=== PATIENT | male | born 1935 | race Caucasian/White ===

== ENCOUNTER → 2017-03-25 | Outpatient (CLI) | payer MEDICARE, BC ==
[~2017-03-25] MED LIST: ASPIR-LOW81 MG PO; ASPIRIN 81M81 MG/TA2 PO; COZAAR 50MG50 MG/TAB PO; DIOVAN; GAVISCON; HCTZ; PROTONIX 40MG T40 MG PO; PROTONIX I40 MG/VIAL; prevastatin
[2017-03-25 16:27] LABS: BASO # 0.1 (0.0-0.2); BASO % 1.4 % (0.0-2.0); EOS # 0.7 (0.0-0.7); EOS % 8.9 % (0-4.0); GRAN # 4.8 (1.4-6.5); GRAN % 58.5 % (42.2-75.2); HEMATOCRIT 46.4 % (42.0-52.0); HEMOGLOBIN 15.3 g/dl (13.5-18.0); LYMPH # 1.6 (1.2-3.4); LYMPH % 19.4 % (20.0-51.0); MEAN CELL VOLUME 92 fl (80.0-100.0); MEAN CORPUSCULAR HEMOGLOBIN 30 pg (27.0-31.0); MEAN CORPUSCULAR HGB CONC 33 g/dl (33.0-37.0); MEAN PLATELET VOLUME 8.9 fl (7.4-10.4); MONO # 0.9 (0.1-0.6); MONO % 11.6 % (1.7-9.3); PLATELET COUNT 161 K/mm3 (130-400); RED BLOOD COUNT 5.07 M/mm3 (4.20-5.60); REDCELL DISTRIBUTION WIDTH-CV 13.2 % (11.5-14.5); WHITE BLOOD COUNT 8.1 K/mm3 (4.8-10.8)
== END ==
LOC: COL.LAB 16:04
PROVIDERS: Internal Medicine Pulmonary Disease
DX: R05 Cough (principal); Z98.890 Other specified postprocedural states

== ENCOUNTER 2018-02-12 11:58 | Day surgery (SDC) | payer MEDICARE, BC ==
[2009-03-20 13:43] VITALS: BP 106/55
[~2018-02-12] VITALS: Ht 177.8 cm; Wt 111.8 kg
[2018-02-12] VITALS (8 sets, daily range): BP systolic 123–141; BP diastolic 59–75; PULSE 62–79; TEMP 98.3–98.6
[2018-02-12 12:20] LABS: BASO # 0.1 (0.0-0.2); BASO % 0.8 % (0.0-2.0); EOS # 0.3 (0.0-0.7); GRAN # 5.8 (1.4-6.5); GRAN % 69.4 % (42.2-75.2); HEMATOCRIT 45.4 % (42.0-52.0); HEMOGLOBIN 15.1 g/dl (13.5-18.0); LYMPH # 1.3 (1.2-3.4); LYMPH % 15.7 % (20.0-51.0); MEAN CELL VOLUME 93 fl (80.0-100.0); MEAN CORPUSCULAR HEMOGLOBIN 31 pg (27.0-31.0); MEAN CORPUSCULAR HGB CONC 33 g/dl (33.0-37.0); MEAN PLATELET VOLUME 8.6 fl (7.4-10.4); MONO # 0.9 (0.1-0.6); MONO % 10.9 % (1.7-9.3); PLATELET COUNT 153 K/mm3 (130-400); REDCELL DISTRIBUTION WIDTH-CV 13.6 % (11.5-14.5)
[2018-02-12] MEDS ORDERED: ADVIL LIQUI-GE200 MG PO (12:40)
[2018-02-12] MEDS ORDERED: XYZAL5 MG PO (12:40)
[2018-02-12] MEDS ORDERED: ZOVIRAX400 MG PO (12:41)
== END 2018-02-12 16:50 | disposition home or self-care (01) ==
LOC: SDCO 11:58
PROVIDERS: Urology
DX: N21.1 Calculus in urethra (principal); N30.41 Irradiation cystitis with hematuria; Z85.46 Personal history of malignant neoplasm of prostate; Z92.3 Personal history of irradiation; Z87.442 Personal history of urinary calculi; K21.9 Gastro-esophageal reflux disease without esophagitis; Z79.82 Long term (current) use of aspirin; Z80.9 Family history of malignant neoplasm, unspecified; I10 Essential (primary) hypertension; G47.33 Obstructive sleep apnea (adult) (pediatric); I05.9 Rheumatic mitral valve disease, unspecified; Z98.890 Other specified postprocedural states
CPT/HCPCS: J0690; J1100; J2405; J2704; J3010; J7120

== ENCOUNTER → 2018-12-02 | Outpatient (CLI) | payer MEDICARE, BC ==
[~2018-12-02] MED LIST changes: +ADVIL LIQUI-GE200 MG PO; +XYZAL5 MG PO; +ZOVIRAX400 MG PO
== END ==
LOC: COL.RAD 11-25 13:30
DX: J01.41 Acute recurrent pansinusitis (principal); K22.719 Barrett's esophagus with dysplasia, unspecified

== ENCOUNTER 2019-01-09 09:53 | Day surgery (SDC) | payer MEDICARE, BC ==
[2009-03-20 13:43] VITALS: BP 106/55
[~2019-01-09] VITALS: Ht 177.8 cm; Wt 108.0 kg
[~2019-01-09 09:53] MED LIST changes: -ADVIL LIQUI-GE200 MG PO; +MOTRIN 200200 MG/TAB PO
[2019-01-09] MEDS ORDERED: BREO IH (10:12)
[2019-01-09] MEDS ORDERED: VENTOLIN0.09 MG IH (10:13)
[2019-01-09] MEDS ORDERED: PRAVACHOL 40MG40 MG PO (10:13)
[2019-01-09 10:49] VITALS: BP 132/65; PULSE 57; TEMP 97.6
[2019-01-09 12:06] VITALS: BP 124/66; PULSE 57; TEMP 98
--- NOTE | 2019-01-09 12:06 | NUR ---
Pt returns from endo procedure. Pt ambulates from cart to recliner with RN assist. Monitors on and alarms set. Call light within reach. Report received from JOSE DAVID Dalton. Pt requests muffins and water. Pt reports no pain or nausea. present in room. Pt alert and answering all questions appropriately.
[2019-01-09 12:15] VITALS: BP 127/69; PULSE 54
[2019-01-09 12:30] VITALS: BP 131/74; PULSE 57
--- NOTE | 2019-01-09 12:30 | NUR ---
Pt taking food and drink well. No complications voiced by patient.
[2019-01-09 12:45] VITALS: BP 125/84; PULSE 49
--- NOTE | 2019-01-09 12:45 | NUR ---
Patient has no complaints. Waiting on Dr. Low to visit with patient.
--- NOTE | 2019-01-09 12:55 | NUR ---
Dr. Low visits with patient and .
[2019-01-09 13:00] VITALS: BP 118/71; PULSE 64
--- NOTE | 2019-01-09 13:10 | NUR ---
Discharge instructions given to patient and . All questions answered to their satisfaction. Handed to them are discharge instructions, diagnosis information, a thank you card, and a discharge med sheet.
--- NOTE | 2019-01-09 13:20 | NUR ---
Pt ambulates to bathroom without complications.
--- NOTE | 2019-01-09 13:25 | NUR ---
Pt ambulates out of hospital with this RN assist and accompanying to private vehicle driven by .
== END 2019-01-09 13:25 | disposition home or self-care (01) ==
LOC: SDCO 09:53
DX: K22.70 Barrett's esophagus without dysplasia (principal); K21.9 Gastro-esophageal reflux disease without esophagitis; I10 Essential (primary) hypertension; Z85.46 Personal history of malignant neoplasm of prostate; Z90.79 Acquired absence of other genital organ(s); Z79.82 Long term (current) use of aspirin; I05.9 Rheumatic mitral valve disease, unspecified; E78.00 Pure hypercholesterolemia, unspecified; G47.33 Obstructive sleep apnea (adult) (pediatric); Z79.899 Other long term (current) drug therapy; Z87.442 Personal history of urinary calculi; Q62.5 Duplication of ureter; Z79.01 Long term (current) use of anticoagulants; Z95.2 Presence of prosthetic heart valve; J32.9 Chronic sinusitis, unspecified
CPT/HCPCS: J2704; J7030

== ENCOUNTER 2020-08-06 16:25 | Emergency (ER) | payer MEDICARE, BC ==
[2009-03-20 13:43] VITALS: BP 106/55
[~2020-08-06 16:25] MED LIST changes: +BREO IH; +PRAVACHOL 40MG40 MG PO; +VENTOLIN0.09 MG IH
[2020-08-06 16:33] VITALS: TEMP 98.4
[2020-08-06] MEDS ORDERED: MACROBID 1100 MG/CAP PO ×3 (17:36→17:54)
[2020-08-06 19:03] VITALS: BP 152/89; PULSE 91
== END 2020-08-06 19:04 | disposition home or self-care (01) ==
LOC: COL.ER 16:25
DX: R31.9 Hematuria, unspecified (principal); R33.9 Retention of urine, unspecified; Z85.46 Personal history of malignant neoplasm of prostate; Z90.79 Acquired absence of other genital organ(s); Z79.82 Long term (current) use of aspirin

== ENCOUNTER 2020-08-18 13:02 | Day surgery (SDC) | payer MEDICARE, BC ==
[2009-03-20 13:43] VITALS: BP 106/55
[2020-08-18] VITALS (10 sets, daily range): BP systolic 119–151; BP diastolic 58–90; PULSE 62–98; TEMP 98.1–98.6
[~2020-08-18] VITALS: Ht 177.8 cm; Wt 101.6 kg
[~2020-08-18 13:02] MED LIST changes: +MACROBID 1100 MG/CAP PO
--- NOTE | 2020-08-18 18:31 | NUR ---
PT TO ROOM 322 PER CART WITH REPORT FROM JOSE MAIN PACU @3050. PT IS DROWSEY AROUSES TO VERBAL. VSS, CBI WITH 6000 CREDIT AND 0 IN BARGER. BARGER [address] TO DD WITH CLEAR FLUID IN BARGER BAG. PT DENIES PAIN. SCDS PLACED BILATERALLY.IV TO GRAVITY AT THIS TIME.
--- NOTE | 2020-08-18 22:53 | NUR ---
Pt currently sleeping in bed. Pt urine is pale yellow and very clear. Pt has his call light withn reach and his bed is in lowest position.
[2020-08-19 03:53] VITALS: BP 107/71; PULSE 68; TEMP 97.7
--- NOTE | 2020-08-19 06:21 | NUR ---
Pt resting in bed and has his call light within reach. Pt urine is yellow and clear. Pt has no complaints of pain at this time .
--- NOTE | 2020-08-19 07:18 | NUR ---
Reported off to JOSE DAVID Barcenas. Pt is sitting up in bed and eating breakfast at this time. Pt has his call light within reach and his bed is in lowest position. Urine is still clear and yellow.
--- NOTE | 2020-08-19 12:06 | NUR ---
Emts met with patient to discuss discharge planning. Patient lives in [place] with his , Courtney (ph#[phone]). Patient sees Dr. Landa for primary care and obtains medications from [facility] in [place] with no difficulties. Patient uses a CPAP and no other DME. Patient reports independence with ADLS and plans to return home upon discharge. Patient does not have Advance Directives in EMR however he reports his is his DPOA-HC. SW will continue to follow as needed.
[2020-08-19 12:41] VITALS: BP 115/51; PULSE 84; TEMP 98.1
--- NOTE | 2020-08-19 16:10 | NUR ---
Patient resting in bed with urinal at this time. Patient is alert and oriented. Patient reports that he is incontinent of urine and that he has a constant stream of urine. Urine is clear and pale yellow. Patient called for excelsior picker but would like to wait on her arrival for discharge teaching. INT removed, catheter intact, hemostasis achieved. Patient denies further needs at this time and will call when his arrives.
--- NOTE | 2020-08-19 18:15 | NUR ---
Discharge teaching completed. Patient verbalized understanding of discharge instructions, discharge meds, and discharge follow up. Patient was awaiting dinner prior to discharge but decided to leave rather than wait to eat. Patient escorted to visitor entrance where he entered a private vehicle.
== END 2020-08-19 18:15 | disposition home or self-care (01) ==
LOC: SDCO 13:02 → SURG 18:10 → SDCO 08-19 18:15
DX: R31.9 Hematuria, unspecified (principal); N30.40 Irradiation cystitis without hematuria; Z90.49 Acquired absence of other specified parts of digestive tract; K21.9 Gastro-esophageal reflux disease without esophagitis; Z99.2 Dependence on renal dialysis; Z79.82 Long term (current) use of aspirin; I10 Essential (primary) hypertension; E78.5 Hyperlipidemia, unspecified; G47.33 Obstructive sleep apnea (adult) (pediatric); M19.90 Unspecified osteoarthritis, unspecified site; Z85.46 Personal history of malignant neoplasm of prostate
CPT/HCPCS: OP; J0690; J1100; J2405; J2704; J3010; J7030

== ENCOUNTER 2020-08-31 11:08 | Inpatient (IN) | payer MEDICARE, BC ==
[~2020-08-31] VITALS: Ht 177.8 cm; Wt 100.6 kg
[~2020-08-31 11:08] MED LIST changes: +OMNICEF 300MG300 MG PO
[2020-08-31 12:15] LABS: COLLECTION METHOD IN
[2020-08-31 12:34] LABS: PH 6 (5-8); SQUAMOUS EPITHELIAL None Seen /hpf; URINE APPEARANCE Cloudy; URINE BACTERIA Moderate /hpf; URINE BILIRUBIN Negative (NEGATIVE); URINE BLOOD 2+ (NEGATIVE); URINE COLOR Red; URINE GLUCOSE 1+ (NEGATIVE); URINE KETONE Negative (NEGATIVE); URINE LEUKOCYTE ESTERASE Trace (NEGATIVE); URINE NITRATE Negative (NEGATIVE); URINE PROTEIN(semi-quant) 2+ (NEGATIVE); URINE RBC >50 /hpf; URINE UROBILINOGEN Negative (NEGATIVE)
[2020-08-31 13:19] LABS: BASO % 0.3 % (0.0-2.0); EOS # 0.1 (0.0-0.7); EOS % 0.8 % (0-4.0); GRAN # 5.2 (1.4-6.5); GRAN % 73.1 % (42.2-75.2); HEMOGLOBIN 11.9 g/dl (13.5-18.0); LYMPH # 0.9 (1.2-3.4); LYMPH % 12.7 % (20.0-51.0); MEAN CELL VOLUME 90 fl (80.0-100.0); MEAN CORPUSCULAR HEMOGLOBIN 30 pg (27.0-31.0); MEAN CORPUSCULAR HGB CONC 33 g/dl (33.0-37.0); MEAN PLATELET VOLUME 8.6 fl (7.4-10.4); MONO # 0.9 (0.1-0.6); PLATELET COUNT 149 K/mm3 (130-400); RED BLOOD COUNT 4.01 M/mm3 (4.20-5.60); REDCELL DISTRIBUTION WIDTH-CV 13.7 % (11.5-14.5)
[2020-08-31 13:28] LABS: INR 1.3 (0.8-3.0); PROTHROMBIN TIME 14.6 SECONDS (9.7-12.8)
[2020-08-31 13:33] LABS: CALCIUM 8.3 mg/dL (8.4-10.2); CREATININE, serum 1.05 (0.66-1.25); POTASSIUM 3.7 mmol/L (3.4-5.0)
[2020-08-31] MEDS ORDERED: PHARMASSURE ZIN50 MG PO (17:06)
[2020-08-31] MEDS ORDERED: VTAMINC250TA PO (17:07)
[2020-08-31] MEDS ORDERED: VITAMIN D31000 IU PO (17:07)
[2020-08-31] MEDS ORDERED: KLOR-CON 1010 MEQ PO (17:08)
[2020-08-31 17:16] VITALS: BP 138/72; PULSE 88
--- NOTE | 2020-08-31 18:30 | NUR ---
Patient arrived to floor at 1630. Mannually irrigated chandra catheter. Removed several large clots. CBI flowing slowly. Urine is light pink with few clots. Oriented patient to room. Explained how COVID isolation works. Patient stated his pain is better since getting the clots out. He was asking about visitors, explained he can not have any visitors. Denies nausea and pain otherwise. He described that he was having some sinus drainage and some upper respiratory symptoms. He said he called his PCP today for antibiotics for sinus infection. Explained that could be symptoms from the COVID. He said he did not start the antibiotics or pick them up from the pharmacy. He stated his tested postive Saturday for COVID. Dr Orlando stopped in to see patient and stated he could eat. Did not have additional orders at this time. No other changes at this time. Call light within reach.
[2020-08-31 19:17] LABS: ARTERIAL BLD GAS O2 SATURATION 96.3 % (92-100); ARTERIAL BLD GAS TCO2 CT 22.9; ARTERIAL BLOOD GAS BASE EXCESS -1.5 (-2-2); ARTERIAL BLOOD GAS HCO3 21.9 meq/L (22-26); ARTERIAL BLOOD GAS PCO2 32.7 mmHg (35-45); ARTERIAL BLOOD GAS PO2 81.2 mmHg (80-100); ARTERIAL BLOOD GAS pH 7.44 (7.35-7.45)
[2020-08-31] MEDS ORDERED: VITAMIND3 5000 PO (19:55)
[2020-08-31] MEDS ORDERED: GARLIC100 MG PO (19:56)
[2020-08-31] MEDS ORDERED: POTASSIUM GLUC595 M1 PO (19:57)
--- NOTE | 2020-08-31 22:00 | NUR ---
Shift assessment complete. Howell in place with CBI. Urine output peach colored and cleared with few small clots present. IV fluids running at 50 ml/hr. Reports discomfort to left shoulder. Up to restroom SBA, passed BM. Heart RRR, A&Ox4. Expiratory wheezes noted on auscultation. Dry cough present. Reports SOA and heavier breathing with exertion. Currently on room air. Call light in reach.
[2020-09-01] VITALS (8 sets, daily range): BP systolic 120–148; BP diastolic 70–84; PULSE 72–86; TEMP 97.6–99.1
[2020-09-01 02:31] LABS: C-REACTIVE PROTEIN 4.9 mg/dL (0.0-0.9); MAGNESIUM 1.9 mg/dL (1.6-2.3)
[2020-09-01 02:41] LABS: TROPONIN-I < 0.012 ng/mL (0.000-0.035)
--- NOTE | 2020-09-01 05:58 | NUR ---
CBI in place throughout night. Output peach colored with small clots for much of night. At this time, output pale yellow with minimal blood clots seen. 1250 mls urine output this shift. Remains on room air. O2 sats slowly decreasing overnight from high 90s to most recent sat at 92-93%. Reports increasing SOA with exertion and when lying flat. Nasal cannula at bedside. Will continue to monitor.
--- NOTE | 2020-09-01 09:25 | NUR ---
Assessment complete. Patient sitting up in bed at this time for breakfast. No complaints of pain or discomfort. CBI continues to run, urine is now pale yellow. Howell is patent draining well. IV site is CD&I, IVF continues to infuse, site is CD&I. Patient is very consious of his vital signs and health status but I assured him that he is stable and the his vitals are good. No other needs were expressed at this time. Call light is in reach.
[2020-09-01 12:40] LABS: HEMATOCRIT 37.3 % (42.0-52.0)
--- NOTE | 2020-09-01 14:38 | NUR ---
Patient called electronic parts salesperson light at this time and requested to see his nurse. I went into the room and patient was sitting on the toilet in the restroom stating "I am pooping straight water and there is blood coming out of my penis". CBI fluids had run out, a new 3000 ml bag was hung. Blood was pink/red and a few clots passed but urine went back to very light yellow right after that. Patient did report pain in his penis when fluids began irrigating again and went to the toilet where I suspect he had a bladder spasm because the fluid was clear with absolutely no stool. PAtient was not able to tell me where the fluid was coming from. Patient returned to bed, free of pain and is now comfortable. No other needs. Will continue to monitor.
--- NOTE | 2020-09-01 15:34 | NUR ---
Casino Floor Person contacted patient's , Courntey (ph#[phone]) to complete intake as patient is COVID positive. Per progress notes, Courtney is at home with COVID as is having high fevers. Courtney advised her temp this morning is 99.5 and she is doing okay at home. Courtney states she has enough food and her daughter, Magdalena (ph#[phone]) is able to come check on her. Courtney states her grandson was also there last night to help feed their animals. Patient and Courtney live in [place] and patient sees Dr. Landa for primary care. Patient obtains medications from [facility] in [place]. Per Courtney, patient does not use any DME and is independent with ADLS. Courtney states she would like patient to return home at discharge. BRIAN discussed home health with Courtney who states they may consider it but that she doesn't feel it's needed at this time. BRIAN contacted patient's daughter, Magdalena and left a message. BRIAN will continue to follow.
--- NOTE | 2020-09-01 18:22 | NUR ---
Patient had a good rest of the day with no issues. Urine is now clear and light yellow. PAtient reports dicomfort at chandra site but no other complaints of pain. CBI continues to run. No other needs. Call light is in reach.
--- NOTE | 2020-09-01 20:01 | NUR ---
Resting in bed. Assessment complete. Lungs clear. Heart sounds normal. Bowels active x4. Pulses present throughout. Bilateral lower ext edema +1. IV left hand infusing without complications. CBI pale yellow urine. CBI replaced. Denies pain. Denies needs at this time. Call light in reach.
[2020-09-02] VITALS (7 sets, daily range): BP systolic 116–144; BP diastolic 64–80; PULSE 66–80; TEMP 96–98.4
--- NOTE | 2020-09-02 07:15 | NUR ---
Report received from JOSE DAVID Wheeler. Pt in bed resting, CBI going at slow rate, assisted Summer with CBI intervention. Resting in bed without needs, will continue jason onitor.
[2020-09-02 07:28] LABS: BASO % 0.1 % (0.0-2.0); GRAN # 8.2 (1.4-6.5); GRAN % 81.3 % (42.2-75.2); HEMOGLOBIN 11.3 g/dl (13.5-18.0); LYMPH # 0.8 (1.2-3.4); LYMPH % 8.3 % (20.0-51.0); MEAN CELL VOLUME 91 fl (80.0-100.0); MEAN CORPUSCULAR HEMOGLOBIN 30 pg (27.0-31.0); MEAN CORPUSCULAR HGB CONC 33 g/dl (33.0-37.0); MEAN PLATELET VOLUME 9.1 fl (7.4-10.4); MONO % 9.9 % (1.7-9.3); PLATELET COUNT 156 K/mm3 (130-400); RED BLOOD COUNT 3.81 M/mm3 (4.20-5.60); REDCELL DISTRIBUTION WIDTH-CV 13.6 % (11.5-14.5)
[2020-09-02 07:29] LABS: HEMATOCRIT 34.5 % (42.0-52.0)
--- NOTE | 2020-09-02 07:57 | NUR ---
The patient had an uneventful night. Pt is on CBI, and rate was set by Dr. Walsh earlier in the evening. The patient did not have any complaints, just some pain during a bowel movement in the middle of the night, other than that, there are no other concerns. Report given to JOSE DAVID Chavez who will continue the care of this patient.
[2020-09-02 08:03] LABS: ALBUMIN 3.3 gm/dL (3.5-5.0); BILIRUBIN,TOTAL 0.6 mg/dL (0.0-1.0); CALCIUM 8.4 mg/dL (8.4-10.2); CREATININE, serum 0.89 (0.66-1.25); TOTAL PROTEIN 6.3 gm/dL (6.4-8.2)
--- NOTE | 2020-09-02 10:22 | NUR ---
Assessment charted. PT doing well, urine is pale yellow, clamped catheter at 0830. Denies pain, up ad wes to bathroom, no oxygen requirements. Anticipating discharge today but per Rodrigo PADILLA with Urology willing to stay until urology feels is able to discharge. Afib, rate controlled. VSS. IVF to LH. Will continue to monitor.
--- NOTE | 2020-09-02 17:07 | NUR ---
Crisis Specialist spoke with patient's daughter, Magdalena to review discharge plan. Magdalena advised she is in agreement with patient returning home. Magdalena advised she and her son have been checking in on patient's , Courtney. SW will continue to follow.
--- NOTE | 2020-09-02 18:05 | NUR ---
Pt has done very well today since getting catheter removed this morning. Staets he feels so much better, and is anticipating discharge tomorrow. Carly called and he wants to see pt in office early next week and cardiovert at end of week. Pt denies pain, resting in bed, up ad wes, will give bedside shift report to nightshift nurse who will resume care.
--- NOTE | 2020-09-02 20:00 | NUR ---
Assessment complete. Patient has no complaints of nausea or pain. He is afebrile and tolerating breathing on RA well. No edema is present. Patient expresses concern of wanting to go home tomorrow. Urinal at bedside is emptied into cup 3, 825 ml of clear, light yellow urine. Patient states his bladder spasms have stopped. No new concerns, will continue to monitor.
[2020-09-03 05:27] VITALS: BP 108/62; PULSE 56; TEMP 96.6
--- NOTE | 2020-09-03 07:00 | NUR ---
Report received form JOSE DAVID Lucas. pT in bed resting, denies needs, will continue to monitor.
[2020-09-03 07:04] LABS: CALCIUM 8.9 mg/dL (8.4-10.2); CREATININE, serum 0.95 (0.66-1.25); POTASSIUM 3.8 mmol/L (3.4-5.0)
[2020-09-03 07:30] LABS: TSH w REFLEX 0.632 uIU/mL (0.465-4.680)
[2020-09-03 09:12] VITALS: BP 138/80; PULSE 66; TEMP 96
--- NOTE | 2020-09-03 10:22 | NUR ---
Assessment charted. PT doing well, resting in bed, denies Dr. Tonny mitchell in this am and will discharge patient home, will get him out shortly
[2020-09-03] MEDS ORDERED: ELIQUIS 2.5 PO (10:28)
[2020-09-03] MEDS ORDERED: CEFTIN500 MG PO (12:59)
[2020-09-03] MEDS ORDERED: DECADRON6 MG PO (13:12)
--- NOTE | 2020-09-03 14:00 | NUR ---
Discharge teaching completed at this time. INT dc'd, tip intact. Pt received dishcarge packet, reviewed all information, pt verbalized understanding. Called 3 scripts int to [facility] per Dr. Martinez and Dr. Carroll. PT left with all belongings. Escorted out by myself and another nruse to maintain clean precautions. PT able to drive self home, OK per Dr. Lancaster. Criteria met.
== END 2020-09-03 14:15 | disposition home or self-care (01) | DRG 698 ==
LOC: COL.ER 11:08 → MEDICAL 12:33
PROVIDERS: Emergency Medicine; Hospitalist; Nurse Practitioner Family; Physician Assistant; ADMIT Urology
DX: N30.41 Irradiation cystitis with hematuria (principal); U07.1 COVID-19; D62 Acute posthemorrhagic anemia; I48.91 Unspecified atrial fibrillation; I10 Essential (primary) hypertension; K21.9 Gastro-esophageal reflux disease without esophagitis; K22.70 Barrett's esophagus without dysplasia; D64.9 Anemia, unspecified; R19.7 Diarrhea, unspecified; E87.6 Hypokalemia; Z95.1 Presence of aortocoronary bypass graft; Z85.46 Personal history of malignant neoplasm of prostate
CPT/HCPCS: OP; 99223; 99231-AI; 99232-AI; 99233-AI; G0378; J0696; J1170; J2270; J7030; J8540

== ENCOUNTER 2020-10-10 12:24 | Day surgery (SDC) | payer MEDICARE, BC ==
[2009-03-20 13:43] VITALS: BP 106/55
[~2020-10-10] VITALS: Ht 177.8 cm; Wt 100.4 kg
[~2020-10-10 12:24] MED LIST changes: +CEFTIN500 MG PO; +DECADRON6 MG PO; +ELIQUIS 2.5 PO; +GARLIC100 MG PO; +KLOR-CON 1010 MEQ PO; +PHARMASSURE ZIN50 MG PO; +POTASSIUM GLUC595 M1 PO; +VITAMIN D31000 IU PO; +VITAMIND3 5000 PO; +VTAMINC250TA PO
[2020-10-10] MEDS ORDERED: OMNICEF 300MG300 MG PO (12:48)
[2020-10-10] MEDS ORDERED: MOVE FREE JOIN1 EACH PO (12:51)
[2020-10-10] MEDS ORDERED: THE MEDICINE S200 M2 PO (12:52)
[2020-10-10 13:17] VITALS: BP 117/76; PULSE 91; TEMP 98.2
[2020-10-10 13:17] LABS: INR 1.4 (0.8-3.0); PROTHROMBIN TIME 15.2 SECONDS (9.7-12.8)
[2020-10-10 13:53] LABS: THYROID STIMULATING HORMONE 0.407 uIU/mL (0.465-4.680)
[2020-10-10 15:00] VITALS: BP 120/84; PULSE 72
[2020-10-10 15:15] VITALS: BP 128/81; PULSE 70
[2020-10-10 15:30] VITALS: BP 142/83; PULSE 69
[2020-10-10 15:45] VITALS: BP 142/85; PULSE 68
--- NOTE | 2020-10-10 16:17 | NUR ---
Pt assisted out by wheelchair to 's car after review of discharge instructions. Pt expressed understanding to all DC information given. He has been ambulatory around room with steady gait. Has tolerated PO without issue. IV DC'd with catheter intact.
== END 2020-10-10 16:19 | disposition home or self-care (01) ==
LOC: COL.CAR 12:24
PROVIDERS: Internal Medicine Interventional Cardiology
DX: I48.0 Paroxysmal atrial fibrillation (principal); I34.0 Nonrheumatic mitral (valve) insufficiency; I51.7 Cardiomegaly; U07.1 COVID-19; I34.2 Nonrheumatic mitral (valve) stenosis; I34.8 Other nonrheumatic mitral valve disorders; R31.9 Hematuria, unspecified; R60.0 Localized edema; K21.9 Gastro-esophageal reflux disease without esophagitis; Z86.79 Personal history of other diseases of the circulatory system; Z79.01 Long term (current) use of anticoagulants; Z79.899 Other long term (current) drug therapy; Z85.46 Personal history of malignant neoplasm of prostate
CPT/HCPCS: J2704; J7030

== ENCOUNTER 2020-12-23 14:16 | Day surgery (SDC) | payer MEDICARE, BC ==
[2009-03-20 13:43] VITALS: BP 106/55
[~2020-12-23] VITALS: Ht 177.8 cm; Wt 102.1 kg
[~2020-12-23 14:16] MED LIST changes: +MOVE FREE JOIN1 EACH PO; +THE MEDICINE S200 M2 PO
[2020-12-23] MEDS ORDERED: VITAMINC1000TA PO (14:40)
[2020-12-23] MEDS ORDERED: MUCINEX1200 MG PO (14:43)
[2020-12-23] MEDS ORDERED: LASIX 20MG TABL20 MG PO (14:46)
[2020-12-23] MEDS ORDERED: CORDARONE200 MG/TAB PO (14:46)
[2020-12-23] MEDS ORDERED: TYLENOL 500MG500 MG PO (14:47)
[2020-12-23] MEDS ORDERED: MOTRIN 200200 MG/TAB PO (14:47)
[2020-12-23] MEDS ORDERED: PULMICORT0.5 MG/2 M IH (14:48)
[2020-12-23] MEDS ORDERED: IPRATROPIUM BROM3 M1 IH (14:48)
[2020-12-23 14:59] VITALS: BP 139/75; PULSE 72; TEMP 98.1
[2020-12-23 18:20] VITALS: BP 140/68; PULSE 60; TEMP 98.7
--- NOTE | 2020-12-23 18:20 | NUR ---
Pt transferred from PACU to [facility] 6 via cart and this RN. present in room. Monitors on and alarms set. Pt alert and oriented. Pt states he's ready for discharge after "lots" of pudding. Pt requests water as well. Pt denies pain or nausea. Howell catheter in place. Call light within reach.
[2020-12-23 18:30] VITALS: BP 140/81; PULSE 66
--- NOTE | 2020-12-23 18:35 | NUR ---
Pt taking food and drink well. No complications voiced by pt.
[2020-12-23 18:45] VITALS: BP 135/86; PULSE 68
--- NOTE | 2020-12-23 18:55 | NUR ---
Leg bag attached for pt in place of chandra catheter. Instructions given to pt and on how to empty it and clean the tip. All questions answered to their satisfaction on wearing the leg bag.
[2020-12-23 19:00] VITALS: BP 150/74; PULSE 64
[2020-12-23 19:15] VITALS: BP 146/93; PULSE 71
--- NOTE | 2020-12-23 19:20 | NUR ---
Discharge instructions given to pt and . All questions answered to their satisfaction. Handed to them are a thank you card, discharge instructions, diagnosis information, and a discharge med sheet. Supplies also given to them for cleaning the leg bag tip as well as another stat-lock in case the positioning of the current one does not work well.
--- NOTE | 2020-12-23 19:30 | NUR ---
Pt transferred out of hospital via wheelchair and this RN to private vehicle driven by .
== END 2020-12-23 19:30 | disposition home or self-care (01) ==
LOC: SDCO
DX: N32.0 Bladder-neck obstruction (principal); I48.91 Unspecified atrial fibrillation; K21.9 Gastro-esophageal reflux disease without esophagitis; I10 Essential (primary) hypertension; J84.10 Pulmonary fibrosis, unspecified; Z90.79 Acquired absence of other genital organ(s); Z86.16 Personal history of COVID-19; Z85.46 Personal history of malignant neoplasm of prostate; Z79.01 Long term (current) use of anticoagulants; Z79.899 Other long term (current) drug therapy
CPT/HCPCS: C1769; J0690; J1100; J2405; J2704; J3010; J3301; J7120

== ENCOUNTER 2021-01-03 12:42 | Day surgery (SDC) | payer MEDICARE, BC ==
[2009-03-20 13:43] VITALS: BP 106/55
[2021-01-03] VITALS (7 sets, daily range): BP systolic 103–118; BP diastolic 60–76; PULSE 53–73; TEMP 98.1
[~2021-01-03] VITALS: Ht 177.8 cm; Wt 101.6 kg
[~2021-01-03 12:42] MED LIST changes: +CORDARONE200 MG/TAB PO; +IPRATROPIUM BROM3 M1 IH; +LASIX 20MG TABL20 MG PO; +MUCINEX1200 MG PO; +PULMICORT0.5 MG/2 M IH; +TYLENOL 500MG500 MG PO; +VITAMINC1000TA PO
[2021-01-03 13:29] LABS: POTASSIUM 4.1 mmol/L (3.4-5.0)
[2021-01-03 13:30] LABS: INR 1.4 (0.8-3.0); PROTHROMBIN TIME 15.4 SECONDS (9.7-12.8)
[2021-01-03] MEDS ORDERED: NATURAL MAGNES200 MG PO (13:49)
[2021-01-03] MEDS ORDERED: THE MEDICINE S200 M2 PO (13:50)
[2021-01-03] MEDS ORDERED: OSCAL 500 TAB500 MG PO (13:50)
[2021-01-03] MEDS ORDERED: MOVE FREE JOIN1 EACH PO (13:50)
[2021-01-03] MEDS ORDERED: OMEGA-3 1000 MG1 CAP PO (13:50)
[2021-01-03] MEDS ORDERED: NATURAL ODORLE400 MG PO (13:52)
[2021-01-03 14:03] LABS: THYROID STIMULATING HORMONE 1.23 uIU/mL (0.465-4.680)
--- NOTE | 2021-01-03 16:44 | NUR ---
DC instructions reviewed, pt expresses understanding. He has tolerated PO intake without issue. Gait is steady up to restroom. IV DC'd with catheter intact. Pt will wait in room for grandson to arrive to take him home, at which point he will be assisted out by wheelchair.
--- NOTE | 2021-01-03 17:06 | NUR ---
Pt assisted out to grandson's truck with discharge paperwork and personal belongings.
== END 2021-01-03 17:06 | disposition home or self-care (01) ==
LOC: COL.CAR 12:42
PROVIDERS: Internal Medicine Interventional Cardiology
DX: I48.91 Unspecified atrial fibrillation (principal); I50.22 Chronic systolic (congestive) heart failure; I34.2 Nonrheumatic mitral (valve) stenosis; I34.0 Nonrheumatic mitral (valve) insufficiency; I11.0 Hypertensive heart disease with heart failure; G47.33 Obstructive sleep apnea (adult) (pediatric); K21.9 Gastro-esophageal reflux disease without esophagitis; Z85.46 Personal history of malignant neoplasm of prostate; Z79.890 Hormone replacement therapy; Z79.01 Long term (current) use of anticoagulants; Z99.89 Dependence on other enabling machines and devices
CPT/HCPCS: J2704; J7030

== ENCOUNTER → 2021-02-17 | Outpatient (CLI) | payer MEDICARE, BC ==
[~2021-02-17] MED LIST changes: +NATURAL MAGNES200 MG PO; +NATURAL ODORLE400 MG PO; +OMEGA-3 1000 MG1 CAP PO; +OSCAL 500 TAB500 MG PO; +ZETIA 10MG TAB10 MG PO
== END ==
LOC: COL.VAS 13:25
DX: U07.1 COVID-19 (principal); R79.89 Other specified abnormal findings of blood chemistry; R93.89 Abnormal findings on diagnostic imaging of other specified body structures
CPT/HCPCS: Q9967

== ENCOUNTER 2021-03-28 23:31 | Observation (INO) | payer MEDICARE, BC ==
[~2021-03-28 23:31] MED LIST changes: -ZETIA 10MG TAB10 MG PO
--- NOTE | 2021-03-28 23:42 | NUR ---
PATIENT ARRIVED TO ROOM 343 AT THIS TIME VIA WHEELCHAIR. CREATIVE RECRUITER BROUGHT PATIENT TO ROOM. PATIENT A DIRECT ADMIT OF DR. LEY.
[2021-03-28 23:51] VITALS: BP 160/71; PULSE 63; TEMP 97.7
[2021-03-29] VITALS (12 sets, daily range): BP systolic 123–169; BP diastolic 53–93; PULSE 52–59; TEMP 97–98.7
[2021-03-29] MEDS ORDERED: ZETIA 10MG TAB10 MG PO (07:39)
--- NOTE | 2021-03-29 09:23 | NUR ---
PT RESTING IN BED AFTER EATING BREAKFAST. DENIES NEEDS. CONTACTED DR IRVIN OFFICE AND CLAIFIED DISCHARGE ORDERS. PT CAN STAY UNTIL THIS PM IF HE WANTS TO TALK TO [place]. BARGER CATH CAN DC IF NOT BLOODY. CATHETER HAS YELLOW URINE IN BAG AT THIS TIME.
--- NOTE | 2021-03-29 10:07 | NUR ---
Initial visit; Patient thanked Avionics Systems Engineer for looking in on him and offering God's blessings.
--- NOTE | 2021-03-29 10:16 | NUR ---
Subsorter met with the patient to complete intake. The patient lives independently in [place] with his , Courtney. The patient has a CPAP and receives supplies from [facility]. The patient's PCP is Dr. Landa and patient receives medications from [facility] in [place]. The patient does not have advanced directives in the EMR but states they are complete and designate his . The patient plans to return home at discharge. *Discharge disposition: Home with spouse, Courtney
--- NOTE | 2021-03-29 15:43 | NUR ---
IN TO SEE PT. PT WANTS TO EAT SUPPER PRIOR TO LEAVING. INSTRUCTED PT TO CALL WHEN READY TO LEAVE.
--- NOTE | 2021-03-29 17:10 | NUR ---
DISCHARGE INTRUCTIONS REVIEWED WITH PT AND SPOUSE. PT LEFT AMBULATORY.
== END 2021-03-29 17:00 | disposition home or self-care (01) ==
LOC: SURG 23:31
PROVIDERS: ADMIT Urology
DX: N32.0 Bladder-neck obstruction (principal); R33.9 Retention of urine, unspecified; N32.89 Other specified disorders of bladder; N30.41 Irradiation cystitis with hematuria; R31.0 Gross hematuria; I48.91 Unspecified atrial fibrillation; I10 Essential (primary) hypertension; K21.9 Gastro-esophageal reflux disease without esophagitis; J44.9 Chronic obstructive pulmonary disease, unspecified; G47.33 Obstructive sleep apnea (adult) (pediatric); E78.5 Hyperlipidemia, unspecified; M19.90 Unspecified osteoarthritis, unspecified site; J84.10 Pulmonary fibrosis, unspecified; Z90.79 Acquired absence of other genital organ(s); Z85.46 Personal history of malignant neoplasm of prostate; Z86.19 Personal history of other infectious and parasitic diseases; Z86.16 Personal history of COVID-19; Z79.899 Other long term (current) drug therapy; Z99.89 Dependence on other enabling machines and devices
CPT/HCPCS: G0378; J0330; J1100; J2405; J2704; J3010

== ENCOUNTER 2021-04-03 21:34 | Emergency (ER) | payer MEDICARE, BC ==
[2009-03-20 13:43] VITALS: BP 106/55
[~2021-04-03] VITALS: Ht 177.8 cm; Wt 104.5 kg
[~2021-04-03 21:34] MED LIST changes: +ZETIA 10MG TAB10 MG PO
[2021-04-03 22:20] LABS: BASO % 0.4 % (0.0-2.0); EOS # 0.3 (0.0-0.7); EOS % 3.3 % (0-4.0); GRAN # 7.7 (1.4-6.5); GRAN % 74.7 % (42.2-75.2); HEMOGLOBIN 10.2 g/dl (13.5-18.0); LYMPH # 0.9 (1.2-3.4); LYMPH % 8.5 % (20.0-51.0); MEAN CELL VOLUME 89 fl (80.0-100.0); MEAN CORPUSCULAR HEMOGLOBIN 27 pg (27.0-31.0); MEAN CORPUSCULAR HGB CONC 31 g/dl (33.0-37.0); MEAN PLATELET VOLUME 8.9 fl (7.4-10.4); MONO # 1.3 (0.1-0.6); MONO % 12.7 % (1.7-9.3); PLATELET COUNT 190 K/mm3 (130-400); RED BLOOD COUNT 3.72 M/mm3 (4.20-5.60); REDCELL DISTRIBUTION WIDTH-CV 15.6 % (11.5-14.5)
[2021-04-03 22:36] LABS: CALCIUM 8.4 mg/dL (8.4-10.2); CREATININE, serum 1.26 (0.66-1.25); POTASSIUM 4.2 mmol/L (3.4-5.0)
[2021-04-03 23:59] VITALS: BP 142/86; PULSE 77; TEMP 98.8
== END 2021-04-04 00:45 | disposition home or self-care (01) ==
LOC: COL.ER 21:34
PROVIDERS: Emergency Medicine
DX: R31.9 Hematuria, unspecified (principal); R33.9 Retention of urine, unspecified; Z79.01 Long term (current) use of anticoagulants

== ENCOUNTER 2021-10-27 18:56 | Emergency (ER) | payer MEDICARE, BC | END 2021-10-27 19:19 | disposition left against medical advice (07) | LOC: COL.ER 18:56 | DX: R39.89 Other symptoms and signs involving the genitourinary system (principal) ==

== ENCOUNTER 2021-12-23 17:20 | Observation (INO) | payer MEDICARE, BC ==
[~2021-12-23] VITALS: Ht 182.9 cm; Wt 104.5 kg
[2021-12-23 18:37] LABS: BASO # 0.1 K/mm3 (0.0-0.2); BASO % 0.7 % (0.0-2.0); EOS # 0.2 K/mm3 (0.0-0.7); EOS % 2.1 % (0.0-4.0); GRAN # 6.9 K/mm3 (1.4-6.5); GRAN % 75.5 % (42.2-75.2); HEMATOCRIT 37.1 % (42.0-52.0); HEMOGLOBIN 12.4 g/dl (13.5-18.0); LYMPH # 0.9 K/mm3 (1.2-3.4); LYMPH % 9.8 % (20.0-51.0); MEAN CELL VOLUME 93 fl (80.0-100.0); MEAN CORPUSCULAR HEMOGLOBIN 31 pg (27-31); MEAN CORPUSCULAR HGB CONC 33 g/dl (33.0-37.0); MEAN PLATELET VOLUME 8.6 fl (7.4-10.4); MONO # 1.1 K/mm3 (0.1-0.6); MONO % 11.5 % (1.7-9.3); PLATELET COUNT 185 K/mm3 (130-400); RED BLOOD COUNT 3.99 M/mm3 (4.20-5.60); REDCELL DISTRIBUTION WIDTH-CV 13.5 % (11.5-14.5)
[2021-12-23 18:51] LABS: ALBUMIN 3.9 gm/dL (3.4-4.8); BILIRUBIN,TOTAL 1.4 mg/dL (0.2-1.2); CALCIUM 8.9 mg/dL (8.4-10.2); CREATININE, serum 2.08 mg/dL (0.72-1.25); POTASSIUM 4.3 mmol/L (3.5-4.5); TOTAL PROTEIN 6.8 gm/dL (6.2-8.1)
[2021-12-23 19:42] LABS: INR 1.1 (0.8-3.0); PROTHROMBIN TIME 12.1 SECONDS (9.7-12.8)
[2021-12-23 19:54] LABS: COLLECTION METHOD CLEAN CATCH
[2021-12-23 20:08] LABS: MUCOUS Present (NOT PRESENT); PH 6 (5-8); SQUAMOUS EPITHELIAL None Seen /hpf (0-10); URINE APPEARANCE Cloudy (CLEAR/HAZY); URINE BACTERIA None Seen /hpf (NONE SEEN); URINE BILIRUBIN Negative (NEGATIVE); URINE BLOOD 2+ (NEGATIVE); URINE COLOR Red (YELLOW); URINE GLUCOSE Negative (NEGATIVE); URINE KETONE Negative (NEGATIVE); URINE LEUKOCYTE ESTERASE 2+ (NEGATIVE); URINE NITRATE Negative (NEGATIVE); URINE PROTEIN(semi-quant) 2+ (NEGATIVE); URINE RBC >50 /hpf (0-2); URINE UROBILINOGEN Negative (NEGATIVE)
[2021-12-23 21:45] VITALS: BP 135/62; PULSE 56; TEMP 98
[2021-12-23 22:00] VITALS: BP 132/62; PULSE 54
[2021-12-23 22:15] VITALS: BP 148/65; PULSE 54; TEMP 98
--- NOTE | 2021-12-23 22:19 | NUR ---
Pt. arrived to the floor from PACU. Pt. is A&OX3, assessment complete. IV to rt. forearm patent, post op fluids infusing per orders. Howell catheter to DD, clear yellow urine noted. Pt. denies pain. Vitals stable. Pt. denies further needs, call light within reach.
[2021-12-23 22:30] VITALS: BP 149/71; PULSE 55
[2021-12-23 23:00] VITALS: BP 159/67; PULSE 55
[2021-12-23 23:30] VITALS: BP 155/69; PULSE 55
[2021-12-24 00:42] VITALS: BP 147/72; PULSE 56
[2021-12-24 01:30] VITALS: BP 150/68; PULSE 57; TEMP 98
[2021-12-24 03:33] VITALS: BP 145/69; PULSE 57; TEMP 97.4
[2021-12-24 07:51] VITALS: BP 129/57; PULSE 62; TEMP 98.2
--- NOTE | 2021-12-24 07:55 | NUR ---
Patient did well with breakfast. Patient up and we ambulated to the hallway. Dyspnea with exertion. Patient reports chronic shortness of breath. Urine did become slightly blood tinged with movement. No clots seen. Howell cares provided & stat lock placed. Brief on he did pass flatus with stool. Patietn now resting in bed with his at his side.
--- NOTE | 2021-12-24 10:30 | NUR ---
rounded, discharge orders obtained. Patient ready to get home. He reports he has had a chandra at home before. I reviewed chandra cares with patient & his . Leg bag per his request. When asked if he has questions he denies, he is just wanting to get home. Int Dc. We reviewed med list, last dose taken. Activity & diet reviewed. Assisted patient to get dressed. Patient and his wheeled out with all belongings.
== END 2021-12-24 10:54 | disposition home or self-care (01) ==
LOC: COL.ER 17:20 → SURG 20:13
PROVIDERS: Emergency Medicine; ADMIT Urology
DX: R31.0 Gross hematuria (principal); R33.9 Retention of urine, unspecified; K21.9 Gastro-esophageal reflux disease without esophagitis; N21.0 Calculus in bladder; I11.0 Hypertensive heart disease with heart failure; I50.9 Heart failure, unspecified; Z85.46 Personal history of malignant neoplasm of prostate; Z92.3 Personal history of irradiation; Z95.2 Presence of prosthetic heart valve; Z90.79 Acquired absence of other genital organ(s)
CPT/HCPCS: A4338; C1769; G0378; J0690; J1100; J2405; J2704; J3010; J7120

== ENCOUNTER → 2022-05-28 | Outpatient (CLI) | payer MEDICARE, BC ==
[~2022-05-28] MED LIST changes: +ASPIRIN E.C. 8181 MG PO; +IBU600 MG PO; +LYSINE1000 MG PO
[2022-05-28 15:48] LABS: HEMATOCRIT 41.9 % (42.0-52.0); MEAN CELL VOLUME 93 fl (80.0-100.0); MEAN CORPUSCULAR HEMOGLOBIN 31 pg (27-31); MEAN CORPUSCULAR HGB CONC 33 g/dl (33.0-37.0); MEAN PLATELET VOLUME 9.4 fl (7.4-10.4); PLATELET COUNT 144 K/mm3 (130-400); RED BLOOD COUNT 4.49 M/mm3 (4.20-5.60); REDCELL DISTRIBUTION WIDTH-CV 14.3 % (11.5-14.5)
[2022-05-28 16:10] LABS: CALCIUM 8.3 mg/dL (8.4-10.2); CREATININE, serum 1.21 mg/dL (0.72-1.25)
== END ==
LOC: COL.LAB 15:13
PROVIDERS: Nurse Practitioner
DX: I50.22 Chronic systolic (congestive) heart failure (principal); U07.1 COVID-19

== ENCOUNTER 2022-09-01 15:42 | Day surgery (SDC) | payer MEDICARE, BC ==
[2022-09-01] VITALS (8 sets, daily range): BP systolic 104–123; BP diastolic 52–74; PULSE 78–86
[~2022-09-01] VITALS: Ht 180.3 cm; Wt 109.0 kg
[2022-09-01 17:33] LABS: BASO # 0.1 K/mm3 (0.0-0.2); BASO % 0.6 % (0.0-2.0); EOS # 0.3 K/mm3 (0.0-0.7); EOS % 2.3 % (0.0-4.0); GRAN # 9.5 K/mm3 (1.4-6.5); GRAN % 77.3 % (42.2-75.2); HEMATOCRIT 41.9 % (42.0-52.0); HEMOGLOBIN 13.8 g/dl (13.5-18.0); LYMPH # 1.3 K/mm3 (1.2-3.4); LYMPH % 10.4 % (20.0-51.0); MEAN CELL VOLUME 94 fl (80.0-100.0); MEAN CORPUSCULAR HEMOGLOBIN 31 pg (27-31); MEAN CORPUSCULAR HGB CONC 33 g/dl (33.0-37.0); MEAN PLATELET VOLUME 8.8 fl (7.4-10.4); MONO # 1.1 K/mm3 (0.1-0.6); MONO % 8.9 % (1.7-9.3); PLATELET COUNT 175 K/mm3 (130-400); RED BLOOD COUNT 4.47 M/mm3 (4.20-5.60); REDCELL DISTRIBUTION WIDTH-CV 13.2 % (11.5-14.5)
[2022-09-01 17:47] LABS: ALBUMIN 3.8 gm/dL (3.4-4.8); BILIRUBIN,TOTAL 1.8 mg/dL (0.2-1.2); C-REACTIVE PROTEIN 0.55 mg/dL (0.00-0.50); CALCIUM 8.8 mg/dL (8.4-10.2); CREATININE, serum 1.5 mg/dL (0.72-1.25); POTASSIUM 4.3 mmol/L (3.5-4.5)
--- NOTE | 2022-09-01 19:15 | NUR ---
PT BROUGHT TO ROOM FROM PACU, PT SLEEPY BUT EASY TO AROUSE. AT BEDSIDE. BARGER IN PLACE. O2 2L NC. PT DENIES PAIN. IV FLUIDS INFUSING IN LT AC. \ NO NEEDS AT THIS TIME. CALL LIGHT WITHIN REACH.
--- NOTE | 2022-09-01 23:35 | NUR ---
CALLED DR AYON FOR CLARIFICATION ON VANC DOSE. WOULD LIKE TO PROCEED W VANC 1G KATELYN.
[2022-09-02 04:41] VITALS: BP 109/58; PULSE 79; TEMP 98.6
[2022-09-02 07:42] VITALS: BP 110/71; PULSE 81; TEMP 98.7
--- NOTE | 2022-09-02 09:08 | NUR ---
Pt turned electronic integrated systems mechanic light requesting assistance to "tie me up". Upon entering pt. room, pt. noted to be standing at the bedside with blood dripping onto floor from penis. Small bowel movement also noted on floor. Howell drainage bag still hanging from bed. Pt. reports trying to go the bathroom but got stuck. Hygiene performed and pt. assisted from toilet to bed. Howell cath is intact and draining properly. Bloody urine noted in drainage bag. No further bleeding noted.
--- NOTE | 2022-09-02 09:44 | NUR ---
PATIENT ALERT, BUT DISPLAYING INTERMITTENT CONFUSION. PATIENT MI'KMAQ. PATIENT DENIES ANY PAIN. ASSESSMENT PERFORMED. AM MEDS REFUSED. PATIENT ATTEMPTED TO STAND UP AND AMBULATE TO BATHROOM, PULLING ON BARGER CATHETER. THIS NURSE DID NOT WITNESS OR ASSIST PATIENT BACK TO BED. URINE RED IN COLOR. IV FLUIDS RUNNING AT 60ML/HOUR. PATIENT ENCOURAGED TO INCREASE PO FLUIDS. PATIENT RESTING IN BED WITH CALL LIGHT NEAR.
[2022-09-02] MEDS ORDERED: MACROBID 1100 MG/CAP PO (12:08)
--- NOTE | 2022-09-02 15:38 | NUR ---
DISCHARGE INSTRUCTIONS PROVIDED. PATIENT EDUCATION GIVEN. IV DC'D. PATIENT EDUCATED ON CATHETER CARE, LEG BAG EXCHANGE EDUCATION. FOLLOW UP APPOINTMENTS DISCUSSED. MEDICATIONS REVIEWED. PATIENT DENIES ANY QUESTIONS OR CONCERNS. PATIENT ESCORTED OUT VIA WHEELCHAIR.
== END 2022-09-02 14:45 | disposition home or self-care (01) ==
LOC: COL.ER 15:42 → SDCO 18:04 → SURG 18:04 → SDCO 09-02 14:45
PROVIDERS: Nurse Practitioner
DX: R33.9 Retention of urine, unspecified (principal); N32.0 Bladder-neck obstruction; N30.41 Irradiation cystitis with hematuria; G47.33 Obstructive sleep apnea (adult) (pediatric); K21.9 Gastro-esophageal reflux disease without esophagitis; I48.91 Unspecified atrial fibrillation; Z87.440 Personal history of urinary (tract) infections; Z85.46 Personal history of malignant neoplasm of prostate; Z95.0 Presence of cardiac pacemaker; Z79.899 Other long term (current) drug therapy
CPT/HCPCS: OP; C1769; C1894; J0330; J0690; J1100; J2270; J2405; J2704; J3010; J3370; J7050